=== PATIENT | male | born 2000 | race African-American/Black ===

== ENCOUNTER 2021-12-10 12:18 | Emergency (ER) | payer BC ==
[~2021-12-10] VITALS: Ht 170.2 cm; Wt 77.1 kg
--- NOTE | 2021-12-10 12:35 | NUR ---
PT TO ER BED 03 C/O AN EPISODE OF VOMITING DESCRIBING IT "COFFEE GROUND" PT DID ADMIT DRINKING WINE AND BEET JUICE THE PREVIOUS NIGHT. STABLE VITALS NOTED. AWAITING MD VILLAFUERTE.
--- NOTE | 2021-12-10 12:52 | NUR ---
DR ERNST AT BEDSIDE FOR EVAL.
[2021-12-10] MEDS ORDERED: OMEPRAZOLE 20 MG CAPSULE.DR PO SCH (13:00)
--- NOTE | 2021-12-10 13:07 | NUR ---
TRACK WELDER AT BEDSIDE FOR BLOOD DRAW.
[2021-12-10] MEDS ORDERED: PANTOPRAZOLE 40 MG TABLET.DR PO ONE ×2 (13:23→13:30)
[2021-12-10 13:32] LABS: BASOPHILS % (AUTO) 0.6 % (0.0-2.0); HEMATOCRIT 42 % (39-51); HEMOGLOBIN 14.4 g/dL (13.5-17.5); LYMPHOCYTES # (AUTO) 0.9 K/uL (0.8-4.8); LYMPHOCYTES % (AUTO) 16.7 % (20.0-44.0); MEAN CORPUSCULAR HGB CONC 34 g/dl (31.0-36.0); MEAN CORPUSCULAR VOLUME 96 fL (80-96); MONOCYTES # (AUTO) 0.5 K/uL (0.1-1.30); MONOCYTES % (AUTO) 9.6 % (2.0-12.0); NEUTROPHILS # (AUTO) 3.9 K/uL (1.8-8.9); NEUTROPHILS % (AUTO) 72.1 % (43.0-81.0); PLATELET COUNT (AUTO) 212 K/uL (150-450); RED BLOOD CELL COUNT(AUTO) 4.41 MIL/uL (4.5-6.0); WHITE BLOOD COUNT (AUTO) 5.4 K/uL (4.3-11.0)
[2021-12-10 14:03] LABS: ALBUMIN 4.1 g/dL (3.4-5.0); BILIRUBIN,DIRECT 0.2 mg/dL (0.0-0.2); BILIRUBIN,TOTAL 0.8 mg/dL (0.2-1.0); CALCIUM, SERUM 9.4 mg/dL (8.5-10.1); CREATININE 1.1 mg/dL (0.6-1.3); POTASSIUM 4.2 mmol/L (3.5-5.1); TOTAL PROTEIN, SERUM 7.3 g/dL (6.4-8.2)
[2021-12-10] MEDS ORDERED: OMEP20CA15 PO (14:14)
[2021-12-10] MEDS ORDERED: ONDA4TAB5 PO (14:14)
[2021-12-10 14:47] VITALS: BP 132/74
--- NOTE | 2021-12-10 14:47 | NUR ---
Patient discharged to home in stable condition. Written and verbal after care instructions given. Patient verbalizes understanding of instruction.
[2021-12-10 15:40] LABS: OCCULT BLOOD STOOL NEGATIVE (NEGATIVE)
== END 2021-12-10 14:48 | disposition home or self-care (01) ==
LOC: ER 12:41
DX: K92.0 Hematemesis (principal); J45.909 Unspecified asthma, uncomplicated; Z79.899 Other long term (current) drug therapy
CPT/HCPCS: 36415; 80048-TC; 80076-TC; 82272-TC; 85025-TC